=== PATIENT | female | born 1965 | race Caucasian/White ===

== ENCOUNTER 2020-06-29 18:00 | Emergency (ER) | payer SELFPAY ==
--- NOTE | 2020-06-29 18:09 | ED.GENADULT ---
HPI - General Adult General Chief complaint: Skin/Abscess/Foreign Body Stated complaint: bite on chest Time Seen by Provider: 06/29/20 18:17 Source: patient Mode of arrival: ambulatory Limitations: no limitations History of Present Illness HPI narrative: 55-year-old female patient presents to the [facility] with what she thinks may be a bite to her chest. Patient states she thinks it occurred this morning when she woke up about 7730 this morning. Patient she woke up and did see out small little area and very little itching she knows when she first wakes up. Patient states that throughout the day the area has gotten larger the swelling has gotten larger. Patient states that she did put some Neosporin onto the area but denies taking any antihistamines or putting any steroid cream to the area. Patient denies any chest pain, shortness of breath, fevers. Related Data Allergies Allergy/AdvReac Type Severity Reaction Status Date / Time Antihistamines - Alkylamine Allergy Unknown HEART RACES Verified 06/29/20 18:20 hydrocodone AdvReac Unknown NAUSEATED/D Verified 06/29/20 18:20 OSMAN Review of Systems Review of Systems: Narrative: CONSTITUTIONAL: Denies fever, chills, or sweats. EYES: Denies visual changes, redness, or discharge. ENT: Denies rhinorrhea, congestion, sore throat, or otalgia. CARDIOVASCULAR: Denies chest pain, palpitations, or edema. RESPIRATORY: Denies cough or dyspnea. GASTROINTESTINAL: Denies abdominal pain, nausea, vomiting, or diarrhea. GENITOURINARY: Denies dysuria or hematuria. SKIN: Denies rash or itching. Positive insect bite/sting to the chest MUSCULOSKELETAL: Denies back pain, joint pain, or myalgia. NEUROLOGIC: Denies headache, numbness, or weakness. PSYCHIATRIC: Denies anxiety or depression. PMFSH Comments At the time of my signature I agree with nursing past medical history, surgical, social, and family history. There is no relevant family history pertinent to the presenting complaint. Exam Narrative: Exam Narrative: GENERAL: Well-appearing, well-nourished, and in no acute distress. HEAD: Normocephalic, atraumatic. EYES: PERRLA and EOMI. ENT: Nares clear, no rhinorrhea or epistaxis. Mucous membranes moist. NECK: Supple. No lymphadenopathy CHEST: Clear to auscultation. No respiratory distress. HEART: Regular rate and rhythm. No murmur heard. Normal peripheral pulses. ABDOMEN: Soft, nontender, nondistended, normal active bowel sounds. EXTREMITIES: Normal range of motion. No edema. SKIN: Warm, dry, no rash. Patient has the swollen area to the right side of the sternum on her anterior chest that is slightly raised measuring approximately 6 x 8. There is no erythema noted and no warmth noted to the touch. There is a very small punctate caroline noted to the middle of the swelling. No pain to the area. NEURO: No focal deficits. Alert and oriented x3. Course Vital Signs Vital signs: Vital Signs Temperature 36.8 C 06/29/20 18:10 Pulse Rate 89 06/29/20 18:10 Respiratory Rate 20 06/29/20 18:10 Blood Pressure 138/77 06/29/20 18:10 Pulse Oximetry 100 06/29/20 18:10 Temperature 36.8 C 06/29/20 18:10 Pulse Rate 89 06/29/20 18:10 Respiratory Rate 20 06/29/20 18:10 Blood Pressure 138/77 06/29/20 18:10 Pulse Oximetry 100 06/29/20 18:10 Vital signs reviewed. Medical Decision Making Differential Diagnosis Differential Diagnosis: Differential diagnosis: Abscess, cellulitis, hidradenitis, laceration, puncture wound. Discussed with patient the fact that she is not having any lightheadedness, dizziness, fevers, nausea, vomiting, diarrhea shortness of breath is reassuring. Discussed with her looks like it is probably just a slight allergic reaction to what ever stung her this morning. Discussed with her appears to be just localized. Discussed with patient we will go ahead and discharge her home with steroid ointment and she can take [id number] Benadryl, Zyrtec or Claritin t
[2020-06-29 18:10] VITALS: BP 138/77; PULSE 89; RESP 20; TEMP 36.8; O2SAT 100
== END 2020-06-29 18:31 | disposition home or self-care (01) ==
PROVIDERS: Emergency Provider Nurse Practitioner Family; PCP Emergency Medicine
DX: T63.481A Toxic effect of venom of other arthropod, accidental (unintentional), initial encounter (principal)
CPT/HCPCS: 99213; G0463

== ENCOUNTER 2020-06-30 09:28 | Emergency (ER) | payer SELFPAY ==
[2020-06-30 09:35] VITALS: BP 146/82; PULSE 86; RESP 19; TEMP 36.9; O2SAT 100
--- NOTE | 2020-06-30 10:00 | ED_ITS ---
HPI - Skin/Abscess/Foreign Bdy General Chief complaint: Wound/Laceration Stated complaint: bug bite Time Seen by Provider: 06/30/20 09:49 History of Present Illness HPI narrative: On the way to work this morning she noted a small amount of swelling to the anterior chest/neck. It is mildly red and tender. As time passed it seemed to be spread further up her neck. She has had spiders in her hoe recently and suspects that she may have been bittent. No SOB Related Data Allergies Allergy/AdvReac Type Severity Reaction Status Date / Time Antihistamines - Alkylamine Allergy Unknown HEART RACES Verified 06/30/20 09:40 hydrocodone AdvReac Unknown NAUSEATED/D Verified 06/30/20 09:40 OSMAN Review of Systems Review of Systems: All systems reviewed & are unremarkable except as noted in HPI and below [facility] Social History Social History Gender identity (if verbalized by the patient): Female Exam Const: General: healthy appearing, no acute distress and alert Orientation/consciousness: patient oriented x3 HENMT: Head: normal to inspection Neck: Neck: normal visual inspection and no lymphadenopathy Chest: Other: Tender and midly edematous area to the upper chest near the manubrium and extending to the inferior portion of the neck. Minimal tenderness and hyperemia. Resp: Effort & Inspection: normal respiratory effort Auscultation: clear to auscultation bilaterally, no rales, no rhonchi and no wheezes Cardio: Jugular venous distension: no JVD Rate: regular rate Rhythm: regular rhythm Heart sounds: no murmurs GI: Inspection: non-distended GI Palp: Yes Soft to palpation and No Tenderness to palpation present (GI) Skin: General skin exam: normal color Neuro: General: patient oriented x3 and moves all extremities Speech: normal speech Extrem: General: no edema Psych: Appearance: well kempt Affect: normal affect Course Vital Signs Vital signs: Vital Signs Temperature 36.9 C 06/30/20 09:35 Pulse Rate 86 06/30/20 09:35 Respiratory Rate 19 06/30/20 09:35 Blood Pressure 146/82 H 06/30/20 09:35 Pulse Oximetry 100 06/30/20 09:35 Temperature 36.9 C 06/30/20 09:35 Pulse Rate 78 08/21/20 11:50 Respiratory Rate 16 06/30/20 11:50 Blood Pressure 124/75 06/30/20 11:50 Pulse Oximetry 100 06/30/20 11:50 MDM - Skin/Abscess/Foreign Bdy MDM Narrative Medical decision making narrative: I think this is most likely a spider bite. Possibly brown recluse. I will treat her for the allergic affects and provide a brief course of antibiotic prophylaxis. Discharge Plan Discharge Clinical Impression: Accidental spider bite Patient Disposition: Home, Self-Care Condition: Stable Instructions: Antibiotic Form, Insect Bite or Sting (ED) Prescriptions: New prednisone 20 mg tablet 60 mg PO DAILY 3 Days Qty: 9 RF: 0 sulfamethoxazole-trimethoprim [Bactrim DS] 800-160 mg tablet 1 tablet PO Q12H Qty: 10 RF: 0 Follow-up/Referrals: Jermain Bledsoe MD [Primary Care Provider] - Discharge Date/Time: 06/30/20 11:50
[2020-06-30] MEDS: predniSONE 20 MG TABLET 60 MG PO (10:57)
[2020-06-30] MEDS: diphenhydrAMINE HCl CAP 25 MG CAPSULE PO (10:57)
[2020-06-30 11:50] VITALS: BP 124/75; PULSE 78; RESP 16; O2SAT 100
== END 2020-06-30 11:50 | disposition home or self-care (01) ==
PROVIDERS: Emergency Provider Emergency Medicine; PCP Emergency Medicine
DX: T63.301A Toxic effect of unspecified spider venom, accidental (unintentional), initial encounter (principal)
CPT/HCPCS: 99283; A9270; J7512

== ENCOUNTER 2021-08-13 14:31 | Outpatient (CLI) | payer OTHER, SELFPAY ==
--- NOTE | ~2021-08-13 | XR_ITS ---
XR chest 2V DATE: 08/13/2021 15:00 INDICATION: Chest pain, shortness of breath TECHNIQUE: PA and lateral views COMPARISON: None FINDINGS: Normal heart size. No hilar or mediastinal enlargement. No pulmonary infiltrate or consolid ation, pleural effusion or pulmonary vascular congestion or pneumothorax. Diffuse osteopenia. IMPRESSION: No active cardiopulmonary disease Reviewed, dictated and finalized at location A.
[2021-08-13 16:08] LABS: D Dimer 0.27 ug/mL (<0.48)
[2021-08-13 16:19] LABS: Vitamin D 25 Hydroxy 28.4 ng/mL
== END 2021-08-13 14:32 | disposition home or self-care (01) ==
LOC: ANHLAB 14:36
PROVIDERS: PCP Emergency Medicine; Visit Provider Emergency Medicine
DX: Z00.00 Encounter for general adult medical examination without abnormal findings (principal); E55.9 Vitamin D deficiency, unspecified; G43.909 Migraine, unspecified, not intractable, without status migrainosus; K21.9 Gastro-esophageal reflux disease without esophagitis; M79.669 Pain in unspecified lower leg; R06.00 Dyspnea, unspecified; R07.9 Chest pain, unspecified; R53.83 Other fatigue; Z11.59 Encounter for screening for other viral diseases
CPT/HCPCS: 36415; 71046; 82306; 85380

== ENCOUNTER 2021-08-16 14:13 | Outpatient (CLI) | payer OTHER, SELFPAY ==
--- NOTE | ~2021-08-16 | CT_ITS ---
EXAMINATION: CT lung screening DATE: 08/16/2021 14:39 INDICATION: Personal history of nicotine dependence, prior smoker with 30 to pack year history TECHNIQUE: Computed tomography (CT) of the chest was performed without intravenous contrast. The dose -length product (DLP) was 60.67 mGy-cm. Automated exposure control and iterative reconstruction techn ique were employed. COMPARISON: None FINDINGS: There is mild atelectasis of the lower lobes. The lungs are free of focal airspace opacitie s. There is no pleural effusion or pneumothorax. Mild emphysema is noted. No pathologically enlarged thoracic lymph nodes are identified. The heart size is normal. Incidental note is made of bilateral b reast masses which appear to have been present on prior mammograms. Recommend correlation with mammog raphic history. There is mild thoracic spondylosis. IMPRESSION: 1. Lung-RADS category 1: Negative. Continue annual screening with noncontrast low-dose chest CT in 12 months. Reviewed, dictated and finalized at location A. IMPRESSION: 1. Lung-RADS category 1: Negative. Continue annual screening with noncontrast l ow-dose chest CT in 12 months.
== END 2021-08-16 14:14 | disposition home or self-care (01) ==
LOC: ANHIMG 14:19
PROVIDERS: PCP Emergency Medicine; Visit Provider Emergency Medicine
DX: Z12.2 Encounter for screening for malignant neoplasm of respiratory organs (principal); Z87.891 Personal history of nicotine dependence
CPT/HCPCS: 71271

== ENCOUNTER 2022-12-12 15:46 | Outpatient (CLI) | payer OTHER, SELFPAY ==
--- NOTE | ~2022-12-12 | XR_ITS ---
EXAMINATION: XR chest 2V DATE: 12/12/2022 16:01 INDICATION: Pneumonia, unspecified organism. TECHNIQUE: Frontal and lateral views of the chest were obtained. COMPARISON: Chest 2 views 08/13/2021, CT chest 08/16/2021 FINDINGS: The chest demonstrates clear lungs without pneumonia, pleural effusion, or pneumothorax. Th e heart size is normal. IMPRESSION: 1. No acute cardiopulmonary disease. Reviewed, dictated and finalized at location A. C [employer]
== END 2022-12-12 15:47 ==
PROVIDERS: PCP Emergency Medicine; Visit Provider Emergency Medicine
DX: J18.9 Pneumonia, unspecified organism (principal)
CPT/HCPCS: 71046